=== PATIENT | female | born 1980 | race Caucasian/White ===

== ENCOUNTER 2016-08-09 15:56 | Outpatient (CLI) | payer OTHER ==
[2013-09-15 15:11] VITALS: BP 128/62
--- NOTE | 2016-08-09 17:26 | Diagnostic Imaging Report ---
[facility] [place] [facility] [address] [facility].[address] [address] Report Submission Date: Aug 09, 2016 5:07:38 PM FOOT MITER OPERATOR Patient Study Name: RACHAEL CHAN Date: Aug 09, 2016 4:34:08 PM FOOT MITER OPERATOR Modality Type: CR Gender: F Description: LOWER EXTREMITY : 84 Institution: [facility] [place] [facility] Physician: SYLVIA AVINA Left knee 2 views Clinical history: Pain Technique AP and lateral Findings: There is a 12 mm bony density medial to the proximal tibia probably ligamentous calcification or old avulsion fracture. No acute bony pathology is seen. There is medial femoral condyle spur. No fracture joint effusion is seen. Small patellar spurs are present Impression: Probable medial ligamentous calcification adjacent to the medial tibia Early degenerative arthritis Electronically signed on Aug 09, 2016 5:07:38 PM FOOT MITER OPERATOR by: Kalpesh SPEAR
--- NOTE | 2016-08-09 17:27 | Diagnostic Imaging Report ---
[facility] [address] [facility].[address] [address] Report Submission Date: Aug 09, 2016 5:08:38 PM STATE COMPTROLLER Patient Study Name: RACHAEL CHAN Date: Aug 09, 2016 4:29:44 PM STATE COMPTROLLER Modality Type: CR Gender: F Description: LOWER EXTREMITY : 84 Institution: [facility] Physician: SYLVIA AVINA Left femur Clinical history: Pain Technique AP and lateral Findings: There is no fracture of the femur. Bone density is normal. The findings of the knee are described separately . Impression: Negative left femur Electronically signed on Aug 09, 2016 5:08:38 PM STATE COMPTROLLER by: Kalpesh SPEAR
== END 2016-08-09 16:00 ==
LOC: RAD 15:56
PROVIDERS: ATTEND Family Medicine
DX: M25.561 Pain in right knee (principal)
CPT/HCPCS: 73552; 73560

== ENCOUNTER 2016-08-20 08:48 | Outpatient (CLI) | payer OTHER ==
[2013-09-15 15:11] VITALS: BP 128/62
--- NOTE | 2016-08-20 11:10 | Diagnostic Imaging Report ---
[facility] [address] [facility].[address] [address] Report Submission Date: Aug 20, 2016 10:46:03 AM ENTERPRISE ARCHITECT Patient Study Name: RACHAEL CHAN Date: Aug 20, 2016 9:00:56 AM ENTERPRISE ARCHITECT Modality Type: MR Gender: F Description: MRI LOW EXT JNT W/O CONTRAST : 84 Institution: [facility] Physician: SYLVIA AVINA HISTORY: 36-year-old female with left knee pain after jogging 45 months ago, pain and swelling anteriorly and medially. COMPARISON: Radiographs of the left knee dated 08/09/2016. TECHNIQUE: Multiplanar multisequence noncontrast MR images of the left knee were performed. FINDINGS: No acute fracture is identified about the left knee. There is mild patchy bone marrow edema of the medial tibial plateau medially. There is a low grade partial tear of the MCL near the femoral attachment. The ACL, PCL, LCL, quadriceps tendon, patellar tendon, and popliteus tendon are intact. There is mild fluid signal within the semimembranosus tendon near the tibial attachment. There is a radial tear of the medial meniscus posterior horn near the root. The body of the medial meniscus is extruded 4.2 mm medially. The lateral meniscus is intact. There is 4 mm lateral patellar subluxation. There is a focal chondral defect of the medial femoral condyle measuring 3 mm transverse ( images 12-13, series 4). There is moderate to advanced chondromalacia of the patellofemoral compartment, greater laterally, with thinning of the articular cartilage and subchondral cystic changes. There is moderate joint effusion. There is a small amount of fluid medial to the semimembranosus tendon. There is a popliteal fossa cyst measuring 2.9 cm cephalocaudal. IMPRESSION: 1. Low grade partial tear of the MCL near the femoral attachment. The LCL and cruciate ligaments are intact. 2. Radial tear of the medial meniscus posterior horn near the root. The lateral meniscus is intact. 3. 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 4. Semimembranosus tendinosis and mild bursitis. 5. Moderate joint effusion and popliteal fossa cyst. Electronically signed on Aug 20, 2016 10:46:03 AM ENTERPRISE ARCHITECT by: Rupesh SPEAR
--- NOTE | 2016-08-20 11:11 | Diagnostic Imaging Report ---
[facility] [address] [facility].[address], [place]. [address] Report Submission Date: Aug 20, 2016 11:05:11 AM ERWIN Patient Study Name: RACHAEL CHAN Date: Aug 20, 2016 9:41:08 AM GEOGRAPHIC INFORMATION SYSTEMS DIRECTOR Modality Type: MR Gender: F Description: MRI L SPINE W/O CONTRAST : 84 Institution: [facility] Physician: SYLVIA AVINA HISTORY: 36-year-old female with low back pain for 15 years, bilateral leg pain, no known injury. COMPARISON: None available. TECHNIQUE: Multiplanar multisequence noncontrast MR images of the lumbar spine were performed. FINDINGS: No fracture or listhesis in the lumbar spine. The conus terminates at L2. There are hemangiomas in the vertebral bodies of L1 and L2. L1-L2: No significant discopathy, central canal stenosis, or neural foraminal stenosis. There is bilateral facet hypertrophy. L2-L3: No significant discopathy, central canal stenosis, or neural foraminal stenosis. There is bilateral facet hypertrophy. L3-L4: There is disc desiccation and mild loss of disc height. There is a mild circumferential broad disc bulge. No significant central canal or neural foraminal stenosis. There is bilateral facet hypertrophy. L4-L5: There is disc desiccation without loss of disc height. There is a mild circumferential broad disc bulge, most prominent centrally, measuring 2.5 mm AP. No significant central canal or neural foraminal stenosis. There is bilateral facet hypertrophy. L5-S1: There is no significant discopathy, central canal stenosis, or neural foraminal stenosis bilaterally. There is bilateral facet hypertrophy. IMPRESSION: 1. No fracture or listhesis of the lumbar spine. 2. Lower lumbar degenerative disc disease and facet arthropathy without high- grade central canal or neural foraminal stenosis throughout the lumbar spine. Electronically signed on Aug 20, 2016 11:05:11 AM ERWIN by: Rupesh SPEAR
== END 2016-08-20 08:50 ==
LOC: RAD 08:48
PROVIDERS: ATTEND Family Medicine
DX: M25.462 Effusion, left knee (principal); M89.8X5 Other specified disorders of bone, thigh
CPT/HCPCS: 72148; 73721

== ENCOUNTER 2018-07-19 16:11 | Outpatient (CLI) | payer OTHER ==
[2013-09-15 15:11] VITALS: BP 128/62
--- NOTE | 2018-07-19 18:54 | Diagnostic Imaging Report ---
KASSIE NINA [facility] [address] [facility] [address] [address] Report Submission Date: Jul 19, 2018 5:04:33 PM SERVICE RIG OPERATOR Patient Study Name: RACHAEL CHAN Date: Jul 19, 2018 4:25:47 PM SERVICE RIG OPERATOR Modality Type: DX Gender: F Description: UPPER EXTREMITY/ HUMERUS : 84 Institution: [facility] Physician: KASSIE NINA Examination: Plain film right humerus History: PAIN IN MID ARM SINCE EXERCISING ON Sunday07/15/18 (Hx) Comparison exams: None provided Findings: 2 views of the right humerus demonstrate normal cortical margins. No fracture. No dislocation. Impression: No acute osseous abnormality. Electronically signed on Jul 19, 2018 5:04:33 PM SERVICE RIG OPERATOR by: Elroy SPEAR
--- NOTE | 2018-07-19 18:55 | Diagnostic Imaging Report ---
KASSIE NINA [facility] [address] [facility] [address] [address] Report Submission Date: Jul 19, 2018 5:03:34 PM AUTOMOBILE MECHANIC RADIATOR Patient Study Name: RACHAEL CHAN Date: Jul 19, 2018 4:29:44 PM AUTOMOBILE MECHANIC RADIATOR Modality Type: DX Gender: F Description: SHOULDER : 84 Institution: [facility] Physician: KASSIE NINA Examination: Plain film right shoulder History: PAIN IN RT SHOULDER AFTER EXERCISING ON Sunday07/15/18 (Hx) Comparison exams: None provided Findings: 3 views of the right shoulder demonstrate normal cortical margins. No evidence for fracture or dislocation. No soft tissue abnormality Impression: No acute osseous process. Electronically signed on Jul 19, 2018 5:03:34 PM AUTOMOBILE MECHANIC RADIATOR by: Elroy SPEAR
== END 2018-07-19 16:13 ==
LOC: RAD 16:11
PROVIDERS: ATTEND Nurse Practitioner Family
DX: M79.621 Pain in right upper arm (principal); M25.511 Pain in right shoulder
CPT/HCPCS: 73030; 73060